=== PATIENT | male | born 1970 | race Caucasian/White ===

== ENCOUNTER 2017-06-04 12:08 | Observation (INO) | payer OTHER ==
--- NOTE | 2017-06-04 12:33 | CPEKG ---
Heart Rate: 68 RR Interval: 882 P-R Interval: 176 QRSD Interval: 90 QT Interval: 420 QTC Interval: 447 P [place]: 48 QRS [place]: -44 T Wave [place]: 37 EKG Severity - BORDERLINE ECG - EKG Impression: SINUS RHYTHM EKG Impression: PROBABLE LEFT ATRIAL ABNORMALITY EKG Impression: LEFT AXIS DEVIATION Electronically Signed By: Lori Matias 04-Jun-2017 20:56:45
--- NOTE | 2017-06-04 12:33 | CPEKG ---
Heart Rate: 68 RR Interval: 882 P-R Interval: 176 QRSD Interval: 90 QT Interval: 420 QTC Interval: 447 P [place]: 48 QRS [place]: -44 T Wave [place]: 37 EKG Severity - BORDERLINE ECG - EKG Impression: SINUS RHYTHM EKG Impression: PROBABLE LEFT ATRIAL ABNORMALITY EKG Impression: LEFT AXIS DEVIATION Electronically Signed By: Lori Matias 04-Jun-2017 20:56:45
[2017-06-04 12:52] LABS: PLATELET COUNT 222 10^3/uL (150-400)
--- NOTE | 2017-06-04 13:39 | EDPHY ---
H & P Time Seen by Provider: 06/04/17 13:21 HPI/ROS: HPI Chest pain. 46-year-old male by private vehicle. This patient reports that he has had intermittent on and off chest discomfort for months. He reports though for the last couple of days it has been worse in intensity. He reports that he went for a bike ride this morning. He came home and took a shower. After the shower he developed a squeezing aching left-sided parasternal pain. He reports that this lasted for about 15 minutes. He reports that it had resolved as he came to the emergency department. He denies chest pain now. He reports that he had some mild shortness of breath associated with the chest pain at that time. He has no family history of coronary artery disease. No personal history of diabetes, hypertension, hyperlipidemia. He is not a smoker. No methamphetamine cocaine or other sympathomimetics. ROS: Constitutional: No fever, no chills. No weakness. Eyes: No discharge. No changes in vision. ENT: No sore throat. No nasal congestion or rhinorrhea. Respiratory: No cough. As above. Cardiac: As above, no palpitations. Gastrointestinal: No abdominal pain, no vomiting, no diarrhea. Genitourinary: No hematuria. No dysuria or increased frequency with urination. Musculoskeletal: No back pain. No neck pain. No myalgias or arthralgias. Skin: No rashes. Neurological: No headache. No focal weakness or altered sensation. Past medical history: He denies any significant past medical history. His primary care physician is Dr. Thornton. Social history: Nonsmoker. No alcohol. Physically active. Here by himself. Physical Exam: General Appearance: Alert, no distress. This patient is responding to questions appropriately and in full sentences. This patient appears well- hydrated and well-nourished. Eyes: Pupils equal and round no pallor or injection. No lid edema, erythema or injection. Respiratory: There are no retractions, lungs are clear to auscultation with good air movement bilaterally. Cardiovascular: Regular rate and rhythm. No murmur. Gastrointestinal: Abdomen is soft and nontender, no masses, bowel sounds normal. No focal tenderness at McBurney's point. No Leggett sign. Neurological: Motor sensory function is grossly intact. Cranial nerves are normal. Gait is normal. Skin: Warm and dry, no rashes. Musculoskeletal: Neck is supple and nontender. Extremities are symmetrical. All joints range without pain or impingement. Psychiatric: No agitation. No depression. Database: EKG: EKG time is 12:31 p.m.; EKG shows a narrow complex normal sinus rhythm with a ventricular rate of 68. Left axis deviation noted. The MT, QRS, QT intervals are within normal limits. There are no ST-T wave changes indicative of ischemic or injury pattern. No evidence of right heart strain. Interpreted by me. Imaging: Chest x-ray AP portable; the cardiac mediastinal silhouette is unremarkable. No evidence of infiltrate or pneumothorax. No acute cardiopulmonary disease process noted. Interpreted by me. Procedures: Emergency department course: IV was placed. The patient was given 324 mg of chewed aspirin. Vital signs were reviewed. 2:20 p.m., patient re-evaluated. He denies any chest pain at this time. Results of his emergency department workup discussed with him. Plan for admission for observation overnight, serial enzyme testing, echocardiogram and provocative testing discussed. He endorses. 2:30 p.m., spoke to hospitalist. Patient accepted for admission PCU observation. Patient admitted in stable condition. Differential Diagnosis: The differential diagnosis on this patient includes but is not limited to musculoskeletal chest pain, acute coronary syndrome, pleurisy. Myocarditis, pericarditis, pulmonary embolism, aortic dissection unlikely. This represents a partial list of diagnoses considered. These considerations are based on history, physical exam, past history, reassessment and diagnostic testing. Smoking Status: Never smoked Constitutional: Initial Vital Signs Temperature (C) 36.7 C 06/04/17 12:09 Heart Rate 68 06/04/17 12:09 Respiratory Rate 16 06/04/17 12:09 Blood Pressure 150/109 H 06/04/17 12:09 O2 Sat (%) 99 06/04/17 12:09 O2 Delivery Mode Room Air Allergies/Adverse Reactions: Sulfa (Sulfonamide Antibiotics) Allergy (Unknown, Verified 06/04/17 12:14) as kid Home Medications: Medication Instructions Recorded Clomiphene Citrate 50 mg PO 06/04/17 Omeprazole [Prilosec 20 mg] 20 mg PO DAILY 06/04/17 Medical Decision Making - Diagnostics Imaging Results: Imaging Impressions Chest X-Ray 06/04/17 12:44 Impression: Normal chest x-ray. - Data Points Laboratory Results: Laboratory Results 06/04/17 12:40 06/04/17 12:40 06/04/17 06/04/17 06/04/17 12:40 12:40 12:40 WBC 8.16 10^3/uL 10^3/uL (3.80-9.50) RBC 4.82 10^6/uL 10^6/uL (4.40-6.38) Hgb 15.6 g/dL g/dL (13.7-17.5) Hct 43.8 % % (40.0-51.0) MCV 90.9 fL fL (81.5-99.8) MCH 32.4 pg pg (27.9-34.1) MCHC 35.6 g/dL g/dL (32.4-36.7) RDW 12.3 % % (11.5-15.2) Plt Count 222 10^3/uL 10^3/uL (150-400) MPV 9.4 fL fL (8.7-11.7) Neut % (Auto) 70.6 % % (39.3-74.2) Lymph % (Auto) 22.3 % % (15.0-45.0) Drew % (Auto) 5.8 % % (4.5-13.0) Eos % (Auto) 0.4 % L % (0.6-7.6) Baso % (Auto) 0.5 % % (0.3-1.7) Nucleat RBC Rel Count 0.0 % % (0.0-0.2) Absolute Neuts (auto) 5.77 10^3/uL 10^3/uL (1.70-6.50) Absolute Lymphs (auto) 1.82 10^3/uL 10^3/uL (1.00-3.00) Absolute Monos (auto) 0.47 10^3/uL 10^3/uL (0.30-0.80) Absolute Eos (auto) 0.03 10^3/uL 10^3/uL (0.03-0.40) Absolute Basos (auto) 0.04 10^3/uL 10^3/uL (0.02-0.10) Absolute Nucleated RBC 0.00 10^3/uL 10^3/uL (0-0.01) Immature Gran % 0.4 % % (0.0-1.1) Immature Gran # 0.03 10^3/uL 10^3/uL (0.00-0.10) D-Dimer 0.31 ug/mLFEU ug/mLFEU (0.00-0.50) Sodium 139 mEq/L mEq/L (134-144) Potassium 4.4 mEq/L mEq/L (3.5-5.2) Chloride 103 mEq/L mEq/L (97-110) Carbon Dioxide 23 mEq/l mEq/l (22-31) Anion Gap 13 mEq/L mEq/L (8-16) BUN 21 mg/dL mg/dL (7-23) Creatinine 1.4 mg/dL H mg/dL (0.7-1.3) Estimated GFR 55 Glucose 87 mg/dL mg/dL (70-100) Calcium 9.5 mg/dL mg/dL (8.5-10.4) Troponin I < 0.012 ng/mL ng/mL (0.000-0.034) Departure - Departure Disposition: [facility] Inpatient Acute Clinical Impression: Chest pain Referrals: Brennon Thornton MD [Primary Care Provider] - As per Instructions
[2017-06-04] MEDS ORDERED: ONDANSETRON DISINTEGRATING 4 MG TAB PO PRN ×2 (14:25)
[2017-06-04] MEDS ORDERED: ONDANSETRON 4 MG/2 ML VIAL IVP PRN ×2 (14:25)
[2017-06-04] MEDS ORDERED: ACETAMINOPHEN 325 MG TAB PO PRN ×2 (14:25)
[2017-06-04] MEDS ORDERED: FLU VACC QS 2017-18 (3YR+)/PF 0.5 ML SYR (FLUARIX QUAD) IM ONE ×2 (16:18)
[2017-06-04] MEDS ORDERED: NS 1,000 ML IV ONE ×2 (16:34)
--- NOTE | 2017-06-04 16:57 | GHP ---
[f rep st] HISTORY AND PHYSICAL DATE OF ADMISSION: 06/04/2017 CHIEF COMPLAINT: Chest pain. HISTORY OF PRESENT ILLNESS: A 46-year-old male with limited past medical history, who presents with intermittent chronic left-sided chest pain. Patient reports that he first began having symptoms a co uple of years ago. Pain is described as pressure like localizing over the left side of his anterior chest. Patient reports that it has increased in frequency, and yesterday he had an episode of pain l asting for a longer period of time with exercise and the intensity was markedly worse than anything h e had experienced in the past. He returned home rested, went back to the gym today to work out again , and had recurrence of the pain, therefore, presented to the emergency department. He reports in th e past that the pain would not predictably occur with exertion, could come on at rest, typically did last for longer than minutes, is not associated with nausea or vomiting. Did have some associated sh ortness of breath. No diaphoresis. Pain is not radiating, and again, could come on with exertion or at rest. Patient denies any recent lower extremity edema, orthopnea, or PND. Patient denies any ch anges in his bowel habits or urination. Denies any recent fevers or chills, cough, rhinorrhea, myalg ias, or arthralgias. PAST MEDICAL HISTORY: 1. 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 2. Gastroesophageal reflux disease. SOCIAL HISTORY: Negative for tobacco, alcohol, or illicit drugs. FAMILY HISTORY: Negative for any heart disease or family members with heart attacks. Patient's moth er is in her 90s and well. REVIEW OF SYSTEMS: A 10-point review of systems is negative with the exception of that reported in t he HPI. PHYSICAL EXAMINATION: VITAL SIGNS: Blood pressure 136/92, heart rate 67, respiratory rate 14, satti ng 93% on room air, 37.0. GENERAL: This is a healthy-appearing, middle-aged male, in no acute distr ess. HEENT: Notable for moist mucous membranes. Eye exam is negative for any icterus. CARDIAC: P atient is regular rate and rhythm. PULMONARY: Clear to auscultation bilaterally. GASTROINTESTINAL: Abdomen is soft. Bowel sounds are normal, is nontender in all 4 quadrants. MUSCULOSKELETAL: Nega tive for any lower extremity edema. SKIN: Negative for any rashes. NEUROLOGIC: Patient is alert a nd oriented x3. PSYCHIATRIC: He is pleasant and cooperative on interview and examination. DATA: White count 8.1, hematocrit 43.8, platelet count of 222. Sodium 139, potassium of 4.4, creati nine of 1.4 (above previous baselines at 1.1). Troponin is less than 0.012. IMAGING DATA: Chest x-ray, which I personally reviewed and interpreted, shows no acute infiltrates o r edema. EKG, which I personally reviewed and interpreted, shows sinus rhythm, leftward axis deviati on, biphasic P waves in V1 with no U waves in V3 and V4. No acute ST-T changes. ASSESSMENT AND PLAN: This is a 46-year-old male presenting with left-sided chest pain. 1. Acute left-sided chest pain. Patient has had intermittent symptoms, some of which have been exer tional. Initial troponin and EKG are negative. Think appropriate for treadmill stress testing if th e patient rules out overnight. 2. Acute kidney injury. Suspect it may be volume related. Will give the patient normal saline bolu s and recheck his kidney function in the morning. He is not on any suspect medications on admission. Will refrain from additional workup until we see his response to the fluid resuscitation. 3. Biphasic P wave on EKG suggestive of left atrial anatomic abnormality. We will check a transthor acic echocardiogram. 4. Microadenoma of the pituitary. Will continue patient's hormone replacement therapy. 5. Gastroesophageal reflux disease. Patient's pain descriptor is not consistent with a GI origin. Will continue his PPI but believe that risk stratification for heart disease is appropriate. 6. Prophylaxis. The patient can ambulate. DIET: Cardiac. DISPOSITION: I expect in less than 2 midnights the patient rules out and has normal stress testing. I have discussed the case with the emergency room physician. Patient will be triaged to the medical -surgical floor for care. /[id number]/MODL
[2017-06-04] MEDS ORDERED: CLOMIPHENE CITRATE 50 MG PO SCH ×2 (21:00)
[2017-06-05 08:30] VITALS: BP 110/77; PULSE 73; RESP 12; TEMP 98.7; O2SAT 92
[2017-06-05] MEDS ORDERED: PANTOPRAZOLE SODIUM 40 MG TAB PO SCH ×2 (09:00)
--- NOTE | 2017-06-05 10:28 | ECHO ---
[email or web address] [address] [address] Main: [phone] Fax: Transthoracic Echocardiogram Name: KARENA ROSE MR#: [id number] Study Date: 06/05/2017 Study Time: 09:11 AM Date of : 1970 Age: 46 year(s) Height: 182.9 cm (72 in.) Weight: 87.54 kg (193 lb.) BSA: 2.1 m2 Gender: Male Examination: Echo Indication: ekg changes, suggesting LAE Image Quality: Adequate Contrast: Requested by: Laly Jones BP: 110 mmHg/77 mmHg Heart Rate: 62 bpm Rhythm: Normal sinus rhythm Indication: ekg changes, suggesting LAE Procedure Staff Drum Sealer: Mary Jane [place] Reading Physician: Demario Monterroso Requesting Provider: Conclusions: Normal global systolic LV function. EF is 57 %. Normal diastolic LV function. Mild mitral valve regurgitation is present. Based on mild mitral regurgitation, a repeat echo may be considered in 3 years unless there is a change in clinical status. Measurements: Chambers Valvular Assessment AV/MV Valvular Assessment TV/PV Normal Normal Normal Name Value Range Name Value Range Name Value Range Ao Selin (MM): 3.3 cm (2.2 cm-3.7 AV Vmax: 1.42 m/s (1 m/s-1.7 TR Vmax: 2.27 mm/s ( - ) cm) m/s) TR PGmax: 21 mmHg ( - ) IVSd (2D): 1.0 cm (0.6 cm-1.1 AV maxP mmHg ( - ) syst. PAP: 26 mmHg ( - ) cm) LVOT Vmax: 1.12 m/s (0.7 m/s-1.1 PV Vmax: 0.91 m/s (0.6 m/s-0.9 LVDd (2D): 4.5 cm (4.2 cm-5.9 m/s) m/s) cm) MV E Vmax: 0.53 m/s ( - ) PV PGmax: 3 mmHg ( - ) LVDs (2D): 2.9 cm (2.1 cm-4 MV A Vmax: 0.51 m/s ( - ) cm) MV E/A: 1.04 ( - ) LVPWd (2D): 1.0 cm (0.6 cm-1 cm) LVEF (BP): 57 % (>=55 %) RVDd(2D): 3.5 cm (1.9 cm-3.8 cmmm) Continued Measurements: Chambers Valvular Assessment AV/MV Valvular Assessment TV/PV Name Value Name Value Name Value LADs: 3.3 cm MV DecTime: 246 m/s CVP (est.): 5 mmHg Patient: KARENA ROSE Study Date: 06/05/2017 Page 1 of 2 09:11 AM LADs Lon.2 cm MV E/E' Septal: 8.30 LA Area: 19.5 cm2 MV E/E' Lateral: 6.30 LA Volume: 51 ml LA Volume Index: 24.3 ml/m2 Additional Vessels Name Value Ao Ascendin.9 cm Findings: Left Ventricle: Normal size left ventricle. No LV hypertrophy. Normal global systolic LV function. EF is 57 %. No regional wall motion abnormality. Normal diastolic LV function. Right Ventricle: Normal size right ventricle. Normal RV function. Left Atrium: The left atrium is normal in size. Right Atrium: The right atrium is normal in size. Mitral Valve: The mitral valve is normal in appearance and function. Mild mitral valve regurgitation is present. Aortic Valve: The aortic valve is normal in appearance and function. There is no aortic valve regurgitation. No aortic valve stenosis is present. Tricuspid Valve: The tricuspid valve is normal in appearance and function. Trivial tricuspid valve regurgitation. The pulmonary artery pressure is normal. Pulmonic Valve: The pulmonic valve is normal in appearance and function. Trivial pulmonic valve regurgitation. Aorta: The aorta is normal. Normal size aortic root measuring 3.3 cm. Normal size ascending aorta measuring 2.9 cm. IVC: The IVC is normal sized. Pericardium: No pericardial effusion. (No Signature Object) Patient: KARENA ROSE Study Date: 06/05/2017 Page 2 of 2 09:11 AM [id number]
--- NOTE | 2017-06-05 10:28 | ECHO ---
[email or web address] [address] [address] Main: [phone] Fax: Transthoracic Echocardiogram Name: KARENA ROSE MR#: [id number] Study Date: 06/05/2017 Study Time: 09:11 AM Date of : 1970 Age: 46 year(s) Height: 182.9 cm (72 in.) Weight: 87.54 kg (193 lb.) BSA: 2.1 m2 Gender: Male Examination: Echo Indication: ekg changes, suggesting LAE Image Quality: Adequate Contrast: Requested by: Laly Jones BP: 110 mmHg/77 mmHg Heart Rate: 62 bpm Rhythm: Normal sinus rhythm Indication: ekg changes, suggesting LAE Procedure Staff Oil Burner Installer: Mary Jane Simpson Reading Physician: Demario Monterroso Requesting Provider: Conclusions: Normal global systolic LV function. EF is 57 %. Normal diastolic LV function. Mild mitral valve regurgitation is present. Based on mild mitral regurgitation, a repeat echo may be considered in 3 years unless there is a change in clinical status. Measurements: Chambers Valvular Assessment AV/MV Valvular Assessment TV/PV Normal Normal Normal Name Value Range Name Value Range Name Value Range Ao Selin (MM): 3.3 cm (2.2 cm-3.7 AV Vmax: 1.42 m/s (1 m/s-1.7 TR Vmax: 2.27 mm/s ( - ) cm) m/s) TR PGmax: 21 mmHg ( - ) IVSd (2D): 1.0 cm (0.6 cm-1.1 AV maxP mmHg ( - ) syst. PAP: 26 mmHg ( - ) cm) LVOT Vmax: 1.12 m/s (0.7 m/s-1.1 PV Vmax: 0.91 m/s (0.6 m/s-0.9 LVDd (2D): 4.5 cm (4.2 cm-5.9 m/s) m/s) cm) MV E Vmax: 0.53 m/s ( - ) PV PGmax: 3 mmHg ( - ) LVDs (2D): 2.9 cm (2.1 cm-4 MV A Vmax: 0.51 m/s ( - ) cm) MV E/A: 1.04 ( - ) LVPWd (2D): 1.0 cm (0.6 cm-1 cm) LVEF (BP): 57 % (>=55 %) RVDd(2D): 3.5 cm (1.9 cm-3.8 cmmm) Continued Measurements: Chambers Valvular Assessment AV/MV Valvular Assessment TV/PV Name Value Name Value Name Value LADs: 3.3 cm MV DecTime: 246 m/s CVP (est.): 5 mmHg Patient: KARENA ROSE Study Date: 06/05/2017 Page 1 of 2 09:11 AM LADs Lon.2 cm MV E/E' Septal: 8.30 LA Area: 19.5 cm2 MV E/E' Lateral: 6.30 LA Volume: 51 ml LA Volume Index: 24.3 ml/m2 Additional Vessels Name Value Ao Ascendin.9 cm Findings: Left Ventricle: Normal size left ventricle. No LV hypertrophy. Normal global systolic LV function. EF is 57 %. No regional wall motion abnormality. Normal diastolic LV function. Right Ventricle: Normal size right ventricle. Normal RV function. Left Atrium: The left atrium is normal in size. Right Atrium: The right atrium is normal in size. Mitral Valve: The mitral valve is normal in appearance and function. Mild mitral valve regurgitation is present. Aortic Valve: The aortic valve is normal in appearance and function. There is no aortic valve regurgitation. No aortic valve stenosis is present. Tricuspid Valve: The tricuspid valve is normal in appearance and function. Trivial tricuspid valve regurgitation. The pulmonary artery pressure is normal. Pulmonic Valve: The pulmonic valve is normal in appearance and function. Trivial pulmonic valve regurgitation. Aorta: The aorta is normal. Normal size aortic root measuring 3.3 cm. Normal size ascending aorta measuring 2.9 cm. IVC: The IVC is normal sized. Pericardium: No pericardial effusion. (No Signature Object) Patient: KARENA ROSE Study Date: 06/05/2017 Page 2 of 2 09:11 AM [id number]
--- NOTE | 2017-06-05 10:28 | ECHO ---
[email or web address] [address] [address] Main: [phone] Fax: Transthoracic Echocardiogram Name: KARENA ROSE MR#: [id number] Study Date: 06/05/2017 Study Time: 09:11 AM Date of : 1970 Age: 46 year(s) Height: 182.9 cm (72 in.) Weight: 87.54 kg (193 lb.) BSA: 2.1 m2 Gender: Male Examination: Echo Indication: ekg changes, suggesting LAE Image Quality: Adequate Contrast: Requested by: Laly Jones BP: 110 mmHg/77 mmHg Heart Rate: 62 bpm Rhythm: Normal sinus rhythm Indication: ekg changes, suggesting LAE Procedure Staff Round Boner: Mary Jane Simpson Reading Physician: Demario Monterroso Requesting Provider: Conclusions: Normal global systolic LV function. EF is 57 %. Normal diastolic LV function. Mild mitral valve regurgitation is present. Based on mild mitral regurgitation, a repeat echo may be considered in 3 years unless there is a change in clinical status. Measurements: Chambers Valvular Assessment AV/MV Valvular Assessment TV/PV Normal Normal Normal Name Value Range Name Value Range Name Value Range Ao Selin (MM): 3.3 cm (2.2 cm-3.7 AV Vmax: 1.42 m/s (1 m/s-1.7 TR Vmax: 2.27 mm/s ( - ) cm) m/s) TR PGmax: 21 mmHg ( - ) IVSd (2D): 1.0 cm (0.6 cm-1.1 AV maxP mmHg ( - ) syst. PAP: 26 mmHg ( - ) cm) LVOT Vmax: 1.12 m/s (0.7 m/s-1.1 PV Vmax: 0.91 m/s (0.6 m/s-0.9 LVDd (2D): 4.5 cm (4.2 cm-5.9 m/s) m/s) cm) MV E Vmax: 0.53 m/s ( - ) PV PGmax: 3 mmHg ( - ) LVDs (2D): 2.9 cm (2.1 cm-4 MV A Vmax: 0.51 m/s ( - ) cm) MV E/A: 1.04 ( - ) LVPWd (2D): 1.0 cm (0.6 cm-1 cm) LVEF (BP): 57 % (>=55 %) RVDd(2D): 3.5 cm (1.9 cm-3.8 cmmm) Continued Measurements: Chambers Valvular Assessment AV/MV Valvular Assessment TV/PV Name Value Name Value Name Value LADs: 3.3 cm MV DecTime: 246 m/s CVP (est.): 5 mmHg Patient: KARENA ROSE Study Date: 06/05/2017 Page 1 of 2 09:11 AM LADs Lon.2 cm MV E/E' Septal: 8.30 LA Area: 19.5 cm2 MV E/E' Lateral: 6.30 LA Volume: 51 ml LA Volume Index: 24.3 ml/m2 Additional Vessels Name Value Ao Ascendin.9 cm Findings: Left Ventricle: Normal size left ventricle. No LV hypertrophy. Normal global systolic LV function. EF is 57 %. No regional wall motion abnormality. Normal diastolic LV function. Right Ventricle: Normal size right ventricle. Normal RV function. Left Atrium: The left atrium is normal in size. Right Atrium: The right atrium is normal in size. Mitral Valve: The mitral valve is normal in appearance and function. Mild mitral valve regurgitation is present. Aortic Valve: The aortic valve is normal in appearance and function. There is no aortic valve regurgitation. No aortic valve stenosis is present. Tricuspid Valve: The tricuspid valve is normal in appearance and function. Trivial tricuspid valve regurgitation. The pulmonary artery pressure is normal. Pulmonic Valve: The pulmonic valve is normal in appearance and function. Trivial pulmonic valve regurgitation. Aorta: The aorta is normal. Normal size aortic root measuring 3.3 cm. Normal size ascending aorta measuring 2.9 cm. IVC: The IVC is normal sized. Pericardium: No pericardial effusion. (No Signature Object) Patient: KARENA ROSE Study Date: 06/05/2017 Page 2 of 2 09:11 AM [id number]
--- NOTE | 2017-06-05 10:44 | CPEKG ---
Heart Rate: 77 RR Interval: 779 P-R Interval: 172 QRSD Interval: 90 QT Interval: 404 QTC Interval: 458 P [place]: 48 QRS [place]: -51 T Wave [place]: 58 EKG Severity - ABNORMAL ECG - EKG Impression: SINUS RHYTHM EKG Impression: LEFT ANTERIOR FASCICULAR BLOCK Electronically Signed By: Armin Jack 06-Jun-2017 09:10:48
--- NOTE | 2017-06-05 10:44 | CPEKG ---
Heart Rate: 77 RR Interval: 779 P-R Interval: 172 QRSD Interval: 90 QT Interval: 404 QTC Interval: 458 P [place]: 48 QRS [place]: -51 T Wave [place]: 58 EKG Severity - ABNORMAL ECG - EKG Impression: SINUS RHYTHM EKG Impression: LEFT ANTERIOR FASCICULAR BLOCK Electronically Signed By: Armin Jack 06-Jun-2017 09:10:48
--- NOTE | 2017-06-05 11:30 | ASMTCMCOM ---
CM Note CM Note Notes: 46 year old male admitted for CP. He has a hx of Microadenoma of the Pituitary-hormone replacement, GERD. Patient having a cardiac work-up. CM to follow but doesn't anticipate patient having discharge needs at this time. Date Signed: 06/05/2017 11:30 AM Electronically Signed By:Chani Ontiveros LCSW
--- NOTE | 2017-06-05 12:21 | GDS ---
[f rep st] DISCHARGE SUMMARY DISCHARGE DIAGNOSIS: Chest pain, unclear etiology. Recommend cardiology followup. PROCEDURES DONE: Exercise stress test--normal. Patient achieved 95% heart rate. HOSPITAL COURSE: The patient is a 46-year-old, who has experienced 1-2 years of chest pain. The jeannine n is central. It does not radiate and is not associated with shortness of breath or diaphoresis. Ho wever, it is fairly consistently present when he exerts himself strenuously. He has also noted it oc casionally at rest. He was admitted overnight. Troponins were negative. Telemetry was unremarkable , and EKG was normal. He had an exercise stress test, which was completely normal. Unfortunately, I am not able to tell him exactly the cause of his pain. I recommend he follow up with Cardiology sin ce he has ongoing chest pain to decide whether he needs any further imaging such as a nuclear stress test or CT cardiac angiogram. The patient is stable and is at low risk for acute DC at this time. CONDITION ON DISCHARGE: Good. Vital signs are stable. His heart rate is between 55 and 70. Blood pressure is 110/77. He is 92% on room air. He is alert and oriented. Heart is regular. Lungs are clear. DISCHARGE MEDICATIONS: Please see discharge medication form. He will resume his usual medications. FOLLOWUP INSTRUCTIONS: He should follow up with Dr. Thornton as needed for chest pain and follow up [facility] for ongoing evaluation of his chest pain. The patient is agreeable with this plan. /[id number]/MODL
--- NOTE | 2017-06-05 12:21 | GDS ---
[f rep st] DISCHARGE SUMMARY DISCHARGE DIAGNOSIS: Chest pain, unclear etiology. Recommend cardiology followup. PROCEDURES DONE: Exercise stress test--normal. Patient achieved 95% heart rate. HOSPITAL COURSE: The patient is a 46-year-old, who has experienced 1-2 years of chest pain. The jeannine n is central. It does not radiate and is not associated with shortness of breath or diaphoresis. Ho wever, it is fairly consistently present when he exerts himself strenuously. He has also noted it oc casionally at rest. He was admitted overnight. Troponins were negative. Telemetry was unremarkable , and EKG was normal. He had an exercise stress test, which was completely normal. Unfortunately, I am not able to tell him exactly the cause of his pain. I recommend he follow up with Cardiology sin ce he has ongoing chest pain to decide whether he needs any further imaging such as a nuclear stress test or CT cardiac angiogram. The patient is stable and is at low risk for acute IL at this time. CONDITION ON DISCHARGE: Good. Vital signs are stable. His heart rate is between 55 and 70. Blood pressure is 110/77. He is 92% on room air. He is alert and oriented. Heart is regular. Lungs are clear. DISCHARGE MEDICATIONS: Please see discharge medication form. He will resume his usual medications. FOLLOWUP INSTRUCTIONS: He should follow up with Dr. Thornton as needed for chest pain and follow up [facility] for ongoing evaluation of his chest pain. The patient is agreeable with this plan. /[id number]/MODL
--- NOTE | 2017-06-05 16:27 | ASDISCHSUM ---
Discharge Information Plan Status:Home with No Needs Medically Cleared to Leave:06/05/2017 Discharge Date:06/05/2017 12:13 PM CM D/C Disposition:Home, Routine, Self-Care ADT D/C Disposition:Home, Routine, Self-Care Projected Discharge Date:06/05/2017 12:00 AM Transportation at D/C:Family Discharge Delay Reason: Follow-Up Date:06/05/2017 12:00 AM Discharge Slot: Final Diagnosis:CP Placement Information Patient Contact Information Contact Name:MARVIN Relationship:Mother [address] City:[place] Phone: State/Zip Code:[place] [address] Email: Financial Information Financial Class:HMO and PPO Plans Primary Plan Desc:[employer] Primary Plan Number:[id number] Secondary Plan Desc: Secondary Plan Number: Assessment Information [facility] CM Progress Note CM Note CM Note Notes: 46 year old male admitted for CP. He has a hx of Microadenoma of the Pituitary-hormone replacement, GERD. Patient having a cardiac work-up. CM to follow but doesn't anticipate patient having discharge needs at this time. Date Signed: 06/05/2017 11:30 AM Electronically Signed By:Chani Ontiveros LCSW Intervention Information
--- NOTE | 2017-06-05 16:27 | ASDISCHSUM ---
Discharge Information Plan Status:Home with No Needs Medically Cleared to Leave:06/05/2017 Discharge Date:06/05/2017 12:13 PM CM D/C Disposition:Home, Routine, Self-Care ADT D/C Disposition:Home, Routine, Self-Care Projected Discharge Date:06/05/2017 12:00 AM Transportation at D/C:Family Discharge Delay Reason: Follow-Up Date:06/05/2017 12:00 AM Discharge Slot: Final Diagnosis:CP Placement Information Patient Contact Information Contact Name:MARVIN Relationship:Mother [address] City:[place] Phone: State/Zip Code:[place] [address] Email: Financial Information Financial Class:HMO and PPO Plans Primary Plan Desc:[employer] Primary Plan Number:[id number] Secondary Plan Desc: Secondary Plan Number: Assessment Information [facility] CM Progress Note CM Note CM Note Notes: 46 year old male admitted for CP. He has a hx of Microadenoma of the Pituitary-hormone replacement, GERD. Patient having a cardiac work-up. CM to follow but doesn't anticipate patient having discharge needs at this time. Date Signed: 06/05/2017 11:30 AM Electronically Signed By:Chani Ontiveros LCSW Intervention Information
--- NOTE | 2017-06-05 16:27 | ASDISCHSUM ---
Discharge Information Plan Status:Home with No Needs Medically Cleared to Leave:06/05/2017 Discharge Date:06/05/2017 12:13 PM CM D/C Disposition:Home, Routine, Self-Care ADT D/C Disposition:Home, Routine, Self-Care Projected Discharge Date:06/05/2017 12:00 AM Transportation at D/C:Family Discharge Delay Reason: Follow-Up Date:06/05/2017 12:00 AM Discharge Slot: Final Diagnosis:CP Placement Information Patient Contact Information Contact Name:MARVIN Relationship:Mother [address] City:[place] Phone: State/Zip Code:[place] [address] Email: Financial Information Financial Class:HMO and PPO Plans Primary Plan Desc:[employer] Primary Plan Number:[id number] Secondary Plan Desc: Secondary Plan Number: Assessment Information [facility] CM Progress Note CM Note CM Note Notes: 46 year old male admitted for CP. He has a hx of Microadenoma of the Pituitary-hormone replacement, GERD. Patient having a cardiac work-up. CM to follow but doesn't anticipate patient having discharge needs at this time. Date Signed: 06/05/2017 11:30 AM Electronically Signed By:Chani Ontiveros LCSW Intervention Information
== END 2017-06-05 12:13 | disposition home or self-care (01) ==
LOC: F2W 15:13
PROVIDERS: ADMIT Hospitalist; ATTEND Internal Medicine
DX: R07.9 Chest pain, unspecified (principal); N17.9 Acute kidney failure, unspecified; D35.2 Benign neoplasm of pituitary gland; R94.31 Abnormal electrocardiogram [ECG] [EKG]; K21.9 Gastro-esophageal reflux disease without esophagitis; Z23 Encounter for immunization
CPT/HCPCS: 71020; 90471; 93005; 93017; 93306; G0378; G0008

== ENCOUNTER → 2017-12-01 | Outpatient (CLI) | payer OTHER ==
[~2017-12-01] MED LIST: GADOBUTROL 10 ML VIAL IVP ONE
== END ==
LOC: FIMAGING 15:40
PROVIDERS: ATTEND Internal Medicine Endocrinology, Diabetes & Metabolism
DX: Z13.89 Encounter for screening for other disorder (principal)
CPT/HCPCS: A9585